=== PATIENT | female | born 1990 | race Hispanic/Latino ===

== ENCOUNTER 2019-10-17 22:41 | Observation (INO) | payer BC, SELFPAY ==
--- NOTE | ~2019-10-17 | XR_ITS ---
EXAMINATION: XR retrograde pyelo w/stent RT DATE: 10/18/2019 16:20 INDICATION: Right internal ureteral stent placement TECHNIQUE: Fluoroscopic images from a right internal ureteral stent placement are submitted for zeynep hernández 28 seconds of fluoroscopy time. 7 fluoroscopic images FINDINGS: There is a right double-J internal ureteral stent projecting in expected position, with proximal Bradford loop at the level of the renal pelvis and distal loop in the pelvis within the bladder lumen. IMPRESSION: 1. Right internal ureteral stent placement. Please refer to real-time procedural findings for panfilo wilson. Reviewed, dictated and finalized at location A. IMPRESSION: 1. Right internal ureteral stent placement. Please refer to real-time procedu ral findings for details.
--- NOTE | ~2019-10-17 | CT_ITS ---
EXAMINATION: CT abdomen pelvis wo con DATE: 10/18/2019 02:38 INDICATION: Right flank pain TECHNIQUE: Computed tomography (CT) of the abdomen and pelvis was performed without intravenous contr ast. The dose-length product (DLP) was 167.44 mGy-cm. Automated exposure control and iterative recons truction technique were employed. COMPARISON: None FINDINGS: The lung bases are clear. The heart size is normal. The liver, spleen, pancreas, gallbladde r, and adrenal glands are normal. There is a 3 mm stone in the right distal ureter which causes mild right hydroureteronephrosis. Nonobstructing stones of the right kidney measure up to 2 mm. There are nonobstructing stones of the left kidney which measure up to 3 mm. No pathologically enlarged abdomin al or pelvic lymph nodes are identified. There is no free intraperitoneal gas or evidence of bowel ob struction. The appendix is normal. IMPRESSION: 1. 3 mm stone of the right distal ureter causing mild right hydroureteronephrosis. 2. Bilateral nephrolithiasis. Reviewed, dictated and finalized at location B. IMPRESSION: 1. 3 mm stone of the right distal ureter causing mild right hydroureteronephros is. 2. Bilateral nephrolithiasis.
[2019-10-17 22:50] VITALS: BP 103/80; PULSE 104; RESP 17; TEMP 36.8; O2SAT 99
[2019-10-17 23:20] LABS: Basophils Percent Auto 0.4 % (0.2-1.2); Eosinophils Percent Auto 0.6 % (0-4.4); Hematocrit 40.4 % (37.0-47.0); Hemoglobin 14.1 g/dL (12.0-15.0); Immature Granulocyte Absolute 0.02 K/mm3 (0.00-0.031); Immature Granulocyte Percent A 0.3 % (0-0.5); Lymphocytes Absolute Auto 1.14 K/mm3 (0.9-3.2); Lymphocytes Percent Auto 15.9 % (18.3-44.2); Mean Corpuscular HGB Conc 34.9 g/dl (32-36); Mean Corpuscular Hemoglobin 31.5 pg (26-34); Mean Corpuscular Volume 90.2 fl (80-100); Mean Platelet Volume 11.2 fl (7.4-10.4); Monocytes Absolute Auto 0.5 K/mm3 (0.1-0.6); Monocytes Percent Auto 7.1 % (2.6-8.5); Neutrophils Absolute Auto 5.5 K/mm3 (1.3-6.7); Neutrophils Percent Auto 75.7 % (45.5-73.1); Platelet Count Result 239 k/mm3 (150-375); Red Blood Count 4.48 M/mm3 (4.2-5.4); Red Cell Distribution Width 11.9 % (11.5-14.5); White Blood Count 7.2 K/mm3 (4.5-10.0)
[2019-10-17 23:28] LABS: Anion Gap 16.1 mmol/L (7-16); Blood Urea Nitrogen 10 mg/dL (7-17); Calcium 9.4 mg/dL (8.4-10.2); Carbon Dioxide 20 mmol/L (22-30); Chloride 108 mmol/L (98-107); Estimated CRCL calculation 58 ml/min; Estimated Glomerular Filt Rate > 60; Glucose 107 mg/dL (65-105); Potassium 4.1 mmol/L (3.4-5.0); Sodium 140 mmol/L (137-145)
[2019-10-17 23:33] LABS: Add Urine Microscopic? YES; Appearance Urine Clear (Clear); Bilirubin Urine Negative (Negative); Blood Urine 1+ (Negative); Calcium Oxalate Crystals Urine Present /hpf; Color Urine Amber (Yellow); Glucose Urine UA Negative (Negative); Ketones Urine 1+ mg/dL (Negative); Leukocyte Esterase Ur Negative LEU/UL (Negative); Mucus Urine Few /lpf; Nitrate Urine Positive (Negative); Protein Urine 2+ mg/dL (Negative); Squamous Epithelial Cell Urine Many /hpf (Few)
[2019-10-17 23:47] LABS: Specific Grav Ur 1.031 (1.001-1.035)
[2019-10-18] VITALS (18 sets, daily range): BP systolic 109–133; BP diastolic 73–99; PULSE 66–108; RESP 8–20; TEMP 36.6–37.1; O2SAT 98–100; BMI 16.0
--- NOTE | 2019-10-18 02:01 | ED.FEMALEGU ---
HPI - Female Genitourinary General Chief complaint: Urogenital-Female Stated complaint: Right flank pain Time Seen by Provider: 10/18/19 01:44 Source: patient Mode of arrival: ambulatory Limitations: no limitations History of Present Illness HPI Narrative: Patient is a 29-year-old female with a history of epilepsy who presents for evaluation of dysuria, frequency, urgency as well as right-sided abdominal pain. Patient reports abdominal pain started earlier today, has become increasingly severe in nature, sharp in nature with pain in the right flank as well. Medication the patient is on for her epilepsy has a side effect of causing renal stones, so patient was initially concerned she had a kidney stone. Patient has denied any hematuria, but reports dysuria, frequency and urgency. She has been nauseated with earlier episodes of emesis. No fever. Related Data Allergies Allergy/AdvReac Type Severity Reaction Status Date / Time diphenhydramine AdvReac Weakness Verified 10/17/19 22:50 [From Benadryl] Review of Systems Review of Systems: Narrative: CONSTITUTIONAL: Denies fever CARDIOVASCULAR: Denies chest pain RESPIRATORY: Denies cough or dyspnea. GASTROINTESTINAL: Reports right-sided abdominal pain, right flank pain SKIN: Denies rash MUSCULOSKELETAL: Reports right flank pain NEUROLOGIC: Denies headache PMF Past Medical History Medical History (Updated 10/18/19 @ 03:24 by Alva Alfaro MD) Epilepsy Social History Social History (Updated 10/18/19 @ 02:03 by Alva Alfaro MD) Smoking status: Never smoker Alcohol intake: never Substance use: never Living arrangements: with family Gender identity (if verbalized by the patient): Female Exam Narrative: Exam Narrative: GENERAL: Awake, alert, conversant HEAD: Normocephalic, atraumatic. EYES: PERRLA and EOMI. ENT: Nares clear, no rhinorrhea or epistaxis. Mucous membranes moist. NECK: Supple. CHEST: No respiratory distress, breathing even and non labored HEART: Tachycardic rate, sinus rhythm ABDOMEN:Non distended, right lower quadrant tenderness, suprapubic tenderness, mild right flank tenderness EXTREMITIES: Normal range of motion. No edema. SKIN: Warm, dry, no rash. NEURO:No focal deficits. Alert and oriented x3 Course Vital Signs Vital signs: Vital Signs Temperature 36.8 C 07/26/20 22:50 Pulse Rate 104 H 10/17/19 22:50 Respiratory Rate 17 10/17/19 22:50 Blood Pressure 103/80 10/17/19 22:50 Pulse Oximetry 99 10/17/19 22:50 Temperature 36.8 C 10/17/19 22:50 Pulse Rate 88 10/18/19 03:18 Respiratory Rate 20 10/18/19 03:18 Blood Pressure 123/86 10/18/19 03:18 Pulse Oximetry 100 10/18/19 03:18 MDM - Female Genitourinary MDM Narrative Medical decision making narrative: Patient is a 29-year-old female that presented for evaluation of nausea, vomiting, and urinary symptoms and right-sided abdominal pain and flank pain. IV access obtained and labs are drawn. At the time of assessment, patient is afebrile, no severe tachycardia or hypotension. Patient with right abdominal tenderness and flank tenderness on exam. Patient without a leukocytosis. She does have a nitrate positive urinary tract infection. On imaging, she has bilateral renal stones and a 3 mm calculus at the right UVJ. Urology was consulted, patient will be kept n.p.o., placed on maintenance fluids with scheduled pain medication. Patient did receive a dose of Rocephin in the ER and remained hemodynamically stable without any fever, hypotension or tachycardia. No evidence of severe sepsis or septic shock. Patient admitted to Dr. Jaime. Differential Diagnosis Differential diagnosis: Likely urinary tract infection and other (nephrolithiasis) Lab Data Attestation: I reviewed the patient's lab results. Result diagrams: 10/17/19 22:57 10/17/19 22:57 Labs: Lab Results 10/17/19 10/17/19 10/17/19 Range/Units 22:57 22:5
[2019-10-18] MEDS: MORPHINE SULFATE 4 MG/ML INJ IV PUSH (02:14)
[2019-10-18] MEDS: ONDANSETRON INJ 4 MG/2 ML VIAL IV PUSH ×2 (02:14→13:00)
[2019-10-18] MEDS: SODIUM CHLORIDE 0.9% IV 1,000 ML 999 ML IV CONT (02:16)
[2019-10-18] MEDS: SODIUM CHLORIDE 0.9% IV 500 ML 999 ML IV CONT (02:18)
[2019-10-18] MEDS: KETOROLAC 15 MG/ML VIAL (*BKC) IV PUSH ×2 (04:23→08:18)
--- NOTE | 2019-10-18 04:39 | ADMGEN ---
This patient, Afshan Goff, was admitted to [facility] Room 301-01. Patient/family oriented to hospital policies and general routines including ID bracelet, bed and alarms, visiting hours, pain management, procedures, bathroom and other care routines, personal items, smoking policy, room service/diet, and visiting hours. Valuables list has been completed. Information on how to activate the Rapid Response Team has been discussed. Patient/Family are encouraged to report perceived risks to care and to ask questions if they do not understand what they are told or what they should do.
[2019-10-18] MEDS: SODIUM CHLORIDE 0.9% IV 1,000 ML 125 ML IV CONT ×2 (05:12→12:58)
--- NOTE | 2019-10-18 07:38 | PM.IMHP ---
H&P: HPI History of Present Illness Chief complaint: UTI, UVJ stone Narrative: Afshan Goff is a 29 year old female with no previous stone history. She had acute onset of right-sided flank pain yesterday afternoon. This prompted a visit to the emergency room. She was diagnosed with a 3 mm right distal ureteral stone. She had hydronephrosis proximal to the stone. She has bilateral small renal stones as well. She has a history of epilepsy the on seizure medicine. She took a AZO at home as well as Tylenol. This did not resolve the pain. she forth nausea without vomiting. She denies any fevers, chills, dysuria, blood in the urine, she denies any symptoms of urinary tract infection. Her urinalysis is nitrate positive. This is likely due to AZO staining the dipstick. Her urinalysis otherwise contaminated. She was given a dose of IV antibiotics in the emergency room. Review of Systems Review of Systems: All systems reviewed & are unremarkable except as noted in HPI and below PMFSH Past Medical History Medical History (Updated 10/18/19 @ 07:42 by Hank Jaime MD) Epilepsy Family History Family History (Updated 10/18/19 @ 04:51 by Silvino Moody RN) Other Unknown family medical history Social History Social History (Updated 10/18/19 @ 02:03 by Alva Alfaro MD) Smoking status: Never smoker Alcohol intake: never Substance use: never Substance use type: does not use Living arrangements: with family Gender identity (if verbalized by the patient): Female Sexual Orientation (if Verbalized by the Patient): Straight or Heterosexual Spiritual care concerns: No Meds Home Medications and Allergies Home Medications Medication Instructions Recorded Confirmed Type levetiracetam 2,000 mg PO BID 10/18/19 10/18/19 History norgestimate-ethinyl estradiol 1 tablet PO DAILY 10/18/19 10/18/19 History [Tri Femynor] nortriptyline 40 mg PO HS 10/18/19 10/18/19 History zonisamide 200 mg PO BID 10/18/19 10/18/19 History Allergies Allergy/AdvReac Type Severity Reaction Status Date / Time diphenhydramine AdvReac Weakness Verified 10/17/19 22:50 [From Benadryl] Vital Signs Vital Signs - 24 hr 10/17/19 22:50 10/18/19 00:27 10/18/19 01:06 Temperature 98.3 F Pulse Rate 104 H 95 96 Respiratory Rate 17 20 20 Blood Pressure 103/80 112/77 109/87 Pulse Oximetry 99 100 100 10/18/19 01:34 10/18/19 02:21 10/18/19 03:18 Temperature Pulse Rate 90 95 88 Respiratory Rate 20 20 20 Blood Pressure 122/74 133/99 H 123/86 Pulse Oximetry 100 100 100 10/18/19 04:15 10/18/19 04:23 10/18/19 06:00 Temperature 98.1 F 98.7 F Pulse Rate 93 108 H 97 Respiratory Rate 20 20 20 Blood Pressure 117/82 129/96 H 122/73 Pulse Oximetry 100 98 100 Exam Const: General: uncomfortable HENMT: General nose exam: Normal nares present Mouth: Yes moist mucous membranes Eyes: General: appearance normal, both eyes and all related structures EOM: EOMs intact bilaterally Neck: Neck: supple Lymphatic: lymphadenopathy not noted Resp: Effort & Inspection: normal respiratory effort Cardio: Rate: regular rate GI: GI Palp: Yes Soft to palpation, Yes Tenderness to palpation present (GI) ( in the right lower quadrant) and No Guarding due to palpation present (GI) Skin: General skin exam: normal color and no rashes or lesions noted Neuro: Speech: normal speech Extrem: General: normal to inspection Psych: Mental Status: mental status grossly normal H&P: Results Labs Labs: Short CBC 10/17/19 Range/Units 22:57 WBC 7.2 (4.5-10.0) K/mm3 Hgb 14.1 (12.0-15.0) g/dL Hct 40.4 (37.0-47.0) % Plt Count 239 (150-375) k/mm3 BMP 10/17/19 22:57 Sodium 140 Potassium 4.1 Chloride 108 H Carbon Dioxide 20 L BUN 10 Creatinine 0.90 Glucose 107 H Calcium 9.4 Urine 10/17/19 Range/Units 23:04 Urine Color Dorys (Yellow) Urine Appearance Clear (C
[2019-10-18] MEDS: levETIRAcetam 500 MG TABLET 2000 MG PO ×2 (09:24→18:13)
[2019-10-18] MEDS: MORPHINE SULFATE 4 MG/ML INJ 2 MG IV PUSH (13:00)
--- NOTE | 2019-10-18 13:05 | PCNSR ---
On 10/18/19, the student, Pedro Pablo Hunter, provided care and completed [place] documentation on this patient. I have reviewed the student's documentation and agree with the findings.
--- NOTE | 2019-10-18 14:05 | PC.NURSE ---
Patient to OR per bed with OR staff.
[2019-10-18] MEDS: LACTATED RINGERS 1,000 ML 30 ML IV CONT ×2 (14:37→16:20)
--- NOTE | 2019-10-18 15:04 | WPDANESEPPF ---
Anes - Initial Pre Proc Eval Procedure: Operation Date: 10/18/19 15:30 Proposed Procedures p CYSTOSCOPY,RIGHT URETEROSCOPY,STONE EXTRACTION - Hank Jaime MD Date/Time: 10/18/19 15:04 Surgeon: Hank Jaime MD Pre Op Diagnosis: UTI, UVJ stone Patient Data Age: 29 Gender: F Height: 1.6 m Weight: 40.9 kg Last Vital Signs Temp 36.8 C 10/18/19 14:34 Pulse 94 10/18/19 14:34 Resp 20 10/18/19 06:00 BP 121/73 10/18/19 14:34 Pulse Ox 100 10/18/19 14:34 Allergies Allergy/AdvReac Type Severity Reaction Status Date / Time diphenhydramine AdvReac Weakness Verified 10/17/19 22:50 [From Benadryl] Home Medications Medication Instructions Recorded Confirmed Type levetiracetam 2,000 mg PO BID 10/18/19 10/18/19 History norgestimate-ethinyl estradiol 1 tablet PO DAILY 10/18/19 10/18/19 History [Tri Femynor] nortriptyline 40 mg PO HS 10/18/19 10/18/19 History zonisamide 200 mg PO BID 10/18/19 10/18/19 History Laboratory Tests 10/17/19 10/17/19 10/17/19 22:57 22:57 23:04 WBC 7.2 K/mm3 K/mm3 (4.5-10.0) RBC 4.48 M/mm3 M/mm3 (4.2-5.4) Hgb 14.1 g/dL g/dL (12.0-15.0) Hct 40.4 % % (37.0-47.0) MCV 90.2 fl fl (80-100) MCH 31.5 pg pg (26-34) MCHC 34.9 g/dl g/dl (32-36) RDW 11.9 % % (11.5-14.5) Plt Count 239 k/mm3 k/mm3 (150-375) MPV 11.2 fl H fl (7.4-10.4) Immature Gran % (Auto) 0.3 % % (0-0.5) Neut % (Auto) 75.7 % H % (45.5-73.1) Lymph % (Auto) 15.9 % L % (18.3-44.2) [place] % (Auto) 7.1 % % (2.6-8.5) Eos % (Auto) 0.6 % % (0-4.4) Baso % (Auto) 0.4 % % (0.2-1.2) Lymph # (Auto) 1.14 K/mm3 K/mm3 (0.9-3.2) [place] # (Auto) 0.5 K/mm3 K/mm3 (0.1-0.6) Eos # (Auto) 0.0 K/mm3 K/mm3 (0-0.3) Baso # (Auto) 0.0 K/mm3 K/mm3 (0.0-0.1) Abs Immat Gran (auto) 0.02 K/mm3 K/mm3 (0.00-0.031) Absolute Neuts (auto) 5.5 K/mm3 K/mm3 (1.3-6.7) Absolute Nucleated RBC 0.0 K/mm3 K/mm3 (0.0-0.012) Nucleated RBC % 0.0 % % (0.0-0.2) Sodium 140 mmol/L mmol/L (137-145) Potassium 4.1 mmol/L mmol/L (3.4-5.0) Chloride 108 mmol/L H mmol/L (98-107) Carbon Dioxide 20 mmol/L L mmol/L (22-30) Anion Gap 16.1 mmol/L H mmol/L (7-16) BUN 10 mg/dL mg/dL (7-17) Creatinine 0.90 mg/dL mg/dL (0.7-1.0) Estim Creat Clear Calc 58 ml/min ml/min Estimated GFR > 60 (59 - ) Glucose 107 mg/dL H mg/dL (65-105) Calcium 9.4 mg/dL mg/dL (8.4-10.2) Urine Color Dorys (Yellow) Urine Appearance Clear (Clear) Urine pH 5.0 (5.0-9.0) Ur Specific [place] 1.031 (1.001-1.035) Urine Protein 2+ mg/dL H mg/dL (Negative) Urine Glucose (UA) Negative mg/dL mg/dL (Negative) Urine Ketones 1+ mg/dL H mg/dL (Negative) Ur Blood (Man) 1+ H (Negative) Urine Nitrate Positive H (Negative) Urine Bilirubin Negative (Negative) Urine Urobilinogen 4.0 mg/dL H mg/dL (<2.0) Leukocyte Esterase Rfl Negative SAMIR/UL SAMIR/UL (Negative) Urine RBC 3-5 /hpf H /hpf (0-2) Urine WBC 4-6 /hpf H /hpf Ur Squamous Epith Cells Many /hpf H /hpf (Few) Calcium Oxalate Crystal Present /hpf /hpf (None) Hyaline Casts 1-2 /lpf /lpf (None) Urine Mucus Few /lpf H /lpf Patient hx anesthesia problems: none Family hx anesthesia problems: none PMFSH Past Medical History Medical History (Updated 10/18/19 @ 14:12 by Sbeas Louis DO) Anxiety Epilepsy Migraine Family History Family History (Updated 10/18/19 @ 04:51 by Silvino Moody RN) Other Unknown family medi
[2019-10-18] MEDS: LIDOCAINE HCL 2% GEL UROJET 10 ML PKG MUCOUS MEM (16:00)
--- NOTE | 2019-10-18 16:22 | P.OP_ITS ---
Procedure Note - Detailed Date of procedure: 10/18/19 Pre-op diagnosis: UTI, UVJ stone right ureteral stone Post-op diagnosis: same Procedure performed: cystoscopy, right retrograde pyelogram, right ureteroscopy, stent placement Description of procedure: this is a patient with a 3 mm right distal ureteral stone. She has multiple small bilateral kidney stones. She presents today for ureteroscopy and stone extraction. She understands risks of bleeding, infection, damage to the urinary tract, inability to remove the stone. She agrees to proceed she was correctly identified and informed consent obtained. She is brought to the operating room. She was given general anesthesia. She was placed in dorsal thigh position. She was prepped and draped in a sterile fashion. Time-out performed. Cystoscopy revealed a normal-appearing bladder. A retrograde pyelogram was performed. I did not clearly see a filling defect of the stone but the stone was small. She had minimal hydronephrosis proximal to the stone. If I placed a guidewire to the kidney. I dilated the ureter with the 810 dilator. I performed ureteroscopy all the way up to the mid to proximal ureter. No stone was encountered. I re-examined the ureter once again. Again no stone was encountered. Because her ureter was small and did require some dilation I elected to leave a stent. I placed a 4.8 variable length stent in [facility]. The proximal coil in the upper pole kidney. Distal coil in the bladder. The bladder is drained. She was awakened and transferred to PACU in stable condition. Implants: 4.8 variable length stent Anesthesia: GLMA Surgeon: Hank Jaime MD Drains: No Packing: No Pathology: none sent Complications: No immediate complications Condition: stable Disposition: PACU
[2019-10-18] MEDS: PHENAZOPYRIDINE HCL 100 MG TABLET 200 MG PO (18:14)
[2019-10-18] MEDS: OXYBUTYNIN CHLORIDE 5 MG TABLET PO (18:14)
[2019-10-18] MEDS: ZONISAMIDE 100 MG CAPSULE 200 MG PO (18:15)
--- NOTE | 2019-10-22 07:31 | PM.DS ---
DS: Admitting Diagnosis Admitting Diagnosis Admitting Diagnosis: Calculus of ureter DS: Discharge Diagnosis Discharge Diagnosis (1) Calculus of right ureter: Code(s): N20.1 - Calculus of ureter Status: Acute Assessment and Plan: She was admitted through the ER with a distal ureteral filling through that a 3 afternoon showed right ureteroscopy. She was sent home the same day in stable condition. DS: Summary Time Spent with Patient Time attestation: Total time spent providing and/or coordinating discharge services: Exam Const: General: no acute distress Discharge Plan Discharge Attending physician on discharge: Hank Jaime Consulting providers: Hank Jaime ; Jb Baldwin ; Mars Anaya Discharging Clinician: Hank Jaime Anticipated Discharge Date/Time: 10/18/19 17:00 Patient Disposition: Home, Self-Care Activity: july shower Diet: as tolerated Discharge Instructions: follow up 7-10 days for stent removal. Office will call Patient Instructions: Antibiotic Form Stand Alone Forms: General Discharge Information Follow-up/Referrals: Hank Jaime MD [Physician] - (7-10 days) Discharge Medications: New hydrocodone-acetaminophen [[place]] 5-325 mg tablet 1 tablet PO Q4H PRN (Reason: pain) Qty: 30 RF: 0 phenazopyridine [Pyridium] 200 mg tablet 200 mg PO TID PRN (Reason: pain) Qty: 30 RF: 0 docusate sodium [Colace] 100 mg capsule 100 mg PO BID Qty: 60 RF: 0 oxybutynin chloride 5 mg tablet 5 mg PO TID PRN (Reason: Abdominal Discomfort) Qty: 60 RF: 0 sulfamethoxazole-trimethoprim [Bactrim DS] 800-160 mg tablet 1 tablet PO Q12H Qty: 10 RF: 0 Continued zonisamide 100 mg Capsule 200 mg PO BID RF: 0 norgestimate-ethinyl estradiol [Tri Femynor] 0.18/0.215/0.25 mg-35 mcg (28) Tablet 1 tablet PO DAILY RF: 0 nortriptyline 10 mg Capsule 40 mg PO HS RF: 0 levetiracetam 1,000 mg Tablet 2,000 mg PO BID RF: 0 Date of admission: 10/18/19 03:24 Primary Care Provider: PHYSICIAN,DYE AUTOMATION OPERATOR Admitting Provider: Hank Jaime Discharge Date/Time: 10/18/19 18:38 Attending physician on admission: Hank Jaime Condition: Stable
== END 2019-10-18 18:38 | disposition home or self-care (01) ==
LOC: ANHED 10-18 03:24 → ANH3MEDSUR 10-18 04:04
PROVIDERS: Admitting Provider Urology; Emergency Provider Emergency Medicine; Visit Provider Urology
PROC: (CPT 52352; principal; 2019-10-18 15:30)
DX: N13.2 Hydronephrosis with renal and ureteral calculous obstruction (principal); R82.90 Unspecified abnormal findings in urine
CPT/HCPCS: 52344; 52332; 36415; 74176; 74420; 80048; 81001; 81025; 85025; 96361; 96365; 96375; 96376; 99285; A9270; C1769; C2617; G0378; J0131; J0696; J1100; J1885; J2250; J2270; J2405; J2704; J3010; J7030; J7040; J7120; Q9966

== ENCOUNTER 2021-07-20 12:25 | Outpatient (CLI) | payer BC, SELFPAY ==
--- NOTE | ~2021-07-20 | US_ITS ---
EXAMINATION: US pelvic complete w TV DATE: 07/20/2021 16:05 INDICATION: Underweight and irregular heavy menses TECHNIQUE: Multiple transabdominal and endovaginal sonographic images of the pelvis were obtained. COMPARISON: None. FINDINGS: The uterus measures 6.8 x 4.5 x 3.5 cm. The endometrial complex measures 6 mm in thickness. The righ t ovary measures 2.7 x 1.7 x 1.2 cm. The left ovary measures 2.2 x 1.6 x 1.2 cm. 1.2 cm anechoic left ovarian cyst. There is normal vascular flow in the ovaries. Trace amount of likely physiologic free fluid in the cul-de-sac. Bladder appears normal with calculated volume of 797 mL despite patient atte mpting to void 3 times. Rotation of the box maker, the patient did not feel an urge to void. IMPRESSION: 1. Normal uterus. 2. Large amount of residual urine within the normal-appearing bladder despite reported 3 attempts at voiding which is of indeterminate etiology or significance. Reviewed, dictated and finalized at location A. IMPRESSION: 1. Normal uterus. 2. Large amount of residual urine within the normal-appearing bladder despite r eported 3 attempts at voiding which is of indeterminate etiology or significanc e.
== END 2021-07-20 12:26 | disposition home or self-care (01) ==
PROVIDERS: PCP Family Medicine; Visit Provider Obstetrics & Gynecology
DX: R63.6 Underweight (principal); N92.0 Excessive and frequent menstruation with regular cycle
CPT/HCPCS: 76830; 76856

== ENCOUNTER 2023-06-24 12:13 | Outpatient (CLI) | payer OTHER, SELFPAY ==
--- NOTE | ~2023-06-24 | XR_ITS ---
XR lumbar spine min 4V DATE: 06/24/2023 13:15 INDICATION: Heavy menses. Underweight. TECHNIQUE: AP, lateral, bilateral oblique views, coned lateral lumbosacral view COMPARISON: None FINDINGS: Normal alignment of the lumbar spine. No fracture or bone destruction, spondylolysis or spo ndylolisthesis. The lumbar pedicles are intact. Lumbar and lumbosacral interspaces are well preserved . IUD is noted. As a prominent amount of fecal material in the colon. IMPRESSION: Negative lumbar spine Reviewed, dictated and finalized at location B. IMPRESSION: Negative lumbar spine
== END 2023-06-24 12:14 ==
PROVIDERS: PCP Nurse Practitioner Family; Visit Provider Nurse Practitioner Family
DX: M54.50 Low back pain, unspecified (principal)
CPT/HCPCS: 72110

== ENCOUNTER 2024-02-18 12:15 | Outpatient (CLI) | payer BC, SELFPAY ==
--- NOTE | ~2024-02-18 | CT_ITS ---
EXAMINATION: CT abdomen pelvis wo/w con DATE: 02/18/2024 12:58 INDICATION: Gross hematuria. TECHNIQUE: Computed tomography (CT) of the abdomen and pelvis was performed without and with intraven ous contrast using a total of 130 mL Omnipaque-350 intravenous contrast with a double-bolus technique for simultaneous opacification of the renal parenchyma and renal collecting system. Automated exposu re control and iterative reconstruction technique were employed. The dose-length product was 1067.37 mGy-cm. COMPARISON: CT abdomen and pelvis 10/18/2019 FINDINGS: The visualized portions of the lung bases demonstrate mild atelectasis. No pleural effusion. The hear t size is normal. No pericardial effusion. The liver, gallbladder, spleen, pancreas, adrenal glands, and left kidney are normal. There is a 2 mm stone in right kidney. There is mild right hydronephrosis and hydroureter. There is a 4 mm stone in distal right ureter. The ureters are well opacified. The b ladder is normal. There is an intrauterine device in expected position. There are no dilated loops of bowel. The appendix is normal. There are no pathologically enlarged lymph nodes. There is no free in traperitoneal fluid. The bones are unremarkable. IMPRESSION: 1. 4 mm stone in distal right ureter with mild right hydronephrosis and hydroureter. 2. 2 mm nonobstructing right kidney stone. Reviewed, dictated and finalized at location A. FREQUENCY MILL OPERATOR IMPRESSION: 1. 4 mm stone in distal right ureter with mild right hydronephrosis and hydrour eter. 2. 2 mm nonobstructing right kidney stone.
--- NOTE | ~2024-02-18 | XR_ITS ---
XR abdomen/kub 1V Ordering provider: Camelia Dunbar APRN History: . R31.0Gross hematuria, right low back/pelvic pain, h/o stone . Comparison: None. FINDINGS: BOWEL: Nonobstructive bowel gas pattern. ORGANOMEGALY: None. SIGNIFICANT PATHOLOGIC CALCIFICATIONS: None. OTHER: IUD is seen. No free air is seen under the diaphragm. IMPRESSION: NO ACUTE ABDOMINAL FINDINGS. Reviewed, dictated and finalized at location A. ORTHOPEDIC
== END 2024-02-18 12:16 | disposition home or self-care (01) ==
LOC: ANHIMG 12:24
PROVIDERS: PCP Family Medicine; Visit Provider Nurse Practitioner Adult Health
DX: R31.0 Gross hematuria (principal); M54.50 Low back pain, unspecified; R10.31 Right lower quadrant pain
CPT/HCPCS: 74018; 74178; Q9967

== ENCOUNTER 2024-03-09 10:20 | Emergency (ER) | payer BC, SELFPAY ==
--- NOTE | ~2024-03-09 | CT_ITS ---
EXAMINATION: CT abdomen pelvis w con DATE: 03/09/2024 12:56 INDICATION: Generalized abdominal pain TECHNIQUE: Computed tomography (CT) of the abdomen and pelvis was performed with 100 mL Omnipaque-350 intravenous contrast. Automated exposure control and iterative reconstruction technique were employe d. The dose-length product was 340.00 mGy-cm. COMPARISON: 02/18/2024 FINDINGS: Mild dependent atelectasis in the lower lobes. Heart size is normal. No pericardial or pleural effusi on. Liver, gallbladder, spleen, pancreas and bilateral adrenal glands are normal. Again seen are a co uple 2 mm stones at the lower pole of the right kidney and a couple 1 mm stones at the lower pole of the left kidney. Minimal bilateral hydronephrosis without evident obstructing ureteral stones. Bladde r and bilateral adnexa are normal. T-shaped IUD in expected position within the anteverted uterus. Lance wels including the appendix are normal. No free intraperitoneal gas or fluid. No pathologically enlar ged abdominal or pelvic lymphadenopathy. Minimal lumbar lower thoracic spondylosis. IMPRESSION: 1. Very small bilateral renal stones with mild bilateral hydronephrosis but no evident obstructing ur eteral stones. 2. IUD in expected position. Reviewed, dictated and finalized at location A. [facility] IMPRESSION: 1. Very small bilateral renal stones with mild bilateral hydronephrosis but no evident obstructing ureteral stones. 2. IUD in expected position.
[2024-03-09 10:28] VITALS: BP 146/100; PULSE 114; RESP 18; TEMP 36.5; O2SAT 97
[2024-03-09 11:22] LABS: Basophils Percent Auto 0.8 % (0.2-1.2); Eosinophils Absolute Auto 0.2 K/mm3 (0-0.3); Eosinophils Percent Auto 4.5 % (0-4.4); Hematocrit 41.6 % (37.0-47.0); Hemoglobin 14.5 g/dL (12.0-15.0); Immature Granulocyte Absolute 0.03 K/mm3 (0.00-0.031); Immature Granulocyte Percent A 0.6 % (0-0.5); Lymphocytes Absolute Auto 1.87 K/mm3 (0.9-3.2); Lymphocytes Percent Auto 38.1 % (18.3-44.2); Mean Corpuscular HGB Conc 34.9 g/dl (32-36); Mean Corpuscular Hemoglobin 33.1 pg (26-34); Mean Platelet Volume 9.6 fl (7.4-10.4); Monocytes Absolute Auto 0.5 K/mm3 (0.1-0.6); Monocytes Percent Auto 10.8 % (2.6-8.5); Neutrophils Absolute Auto 2.2 K/mm3 (1.3-6.7); Neutrophils Percent Auto 45.2 % (45.5-73.1); Platelet Count Result 293 k/mm3 (150-375); Red Blood Count 4.38 M/mm3 (4.2-5.4); Red Cell Distribution Width 11.9 % (11.5-14.5); White Blood Count 4.9 K/mm3 (4.5-10.0)
[2024-03-09 11:33] LABS: Alanine Aminotransferase 20 U/L (6-35); Albumin Level 4.7 g/dL (3.5-5.1); Alkaline Phosphatase 67 U/L (38-126); Anion Gap 5 mmol/L (4-12); Aspartate Amino Transferase 23 U/L (14-36); Bilirubin,Total 0.5 mg/dL (0.2-1.3); Blood Urea Nitrogen 8 mg/dL (7-17); Calcium 9.3 mg/dL (8.4-10.2); Carbon Dioxide 30 mmol/L (22-30); Chloride 103 mmol/L (98-107); Estimated CRCL calculation 82 ml/min; Estimated Glomerular Filt Rate > 60; Glucose 91 mg/dL (65-110); Lipase 72 U/L (23-300); Sodium 138 mmol/L (137-145)
--- NOTE | 2024-03-09 11:55 | ED_ITS ---
HPI - Abdominal Pain General Chief Complaint: Abdominal Pain Stated Complaint: left flank pain Time Seen by Provider: 03/09/24 10:55 History of Present Illness HPI narrative: Patient is a 33-year-old female who presents to the ER with generalized abdominal pain specifically in her left lower quadrant and bilateral lower back pain. She reports right before she was diagnosed as having a 4 mm kidney stone and a 2 mm kidney stone. Patient was told to follow-up with urology but she has been unable to do this yet. She reports her pain got better but then last Friday or she started experiencing significant pain again. Patient reports her last bowel was 2 days ago and it was normal for her. She denies any recent fevers, chest pain, shortness of breath, urinary symptoms. Related Data Home Medications ?Medication ?Instructions ?Recorded ?Confirmed ?Last Taken ?Type nortriptyline 10 mg capsule 40 mg PO HS 10/18/19 03/09/24 10/15/19 History clobazam 20 mg tablet 20 mg PO BID 12/22/20 03/09/24 Unknown History lamotrigine 25 mg tablet (Lamictal) 50 mg PO DAILY 12/22/20 03/09/24 Unknown History clonazepam 0.5 mg disintegrating 0.5 mg PO DAILY PRN 10/14/22 03/09/24 Unknown History tablet levonorgestrel 14 mcg/24 hr (up to 1 device intrauterine ONCE 10/14/22 03/09/24 Unknown History 3 yrs) 13.5 mg intrauterine device (Precious) divalproex 500 mg tablet,extended mg PO DAILY 06/23/23 03/09/24 Unknown History release 24 hr levetiracetam 1,000 mg tablet 2,000 mg PO BID 10/17/23 03/09/24 Unknown History Allergies Allergy/AdvReac Type Severity Reaction Status Date / Time topiramate (From Topamax) AdvReac Severe Seizure Verified 03/09/24 08:39 ondansetron AdvReac Intermediate Headache Verified 03/09/24 08:39 diphenhydramine (From AdvReac Weakness Verified 03/09/24 08:39 Benadryl) Review of Systems 2 Review of Systems: All systems reviewed & are unremarkable except as noted in HPI and below PMFSH Past Medical History Medical History Right distal ureteral calculus RLQ abdominal pain Gross hematuria BMI 25.0-25.9,adult Right knee pain Flu vaccine need Body mass index (BMI) less than 20 Body mass index (BMI) less than 16.5 Anxiety Migraine Abnormal urinalysis Renal stone Calculus of right ureter Urinary tract infection Epilepsy Surgical History Surgical History H/O foot surgery Family History Family History Other Unknown family medical history Social History Social History Smoking status: Never smoker Second hand tobacco smoke exposure: No Alcohol intake: current Substance use: never Substance use type: does not use Living arrangements: with family Occupation/Education: occupation 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 HEAD: Normocephalic, atraumatic. NECK: Supple. No adenopathy, no masses. RESPIRATORY: Airway patent, respirations nonlabored. Clear to auscultation bilaterally, no rales, rhonchi, wheezing. CARDIOVASCULAR: Regular rate and rhythm without murmurs, rubs, or gallops. Peripheral pulses 2+ and equal bilaterally. +CVA ABDOMINAL: Soft, nontender, nondistended, no hepatosplenomegaly. Normoactive BS. MUSCULOSKELETAL: Moves all extremities. Strength/ROM intact without gross deformities. SKIN: Warm, dry, normal color. No rashes. NEURO: A&O X3. Speech clear. Cranial nerves II-XII grossly intact. Steady gait. No ataxic movements. PSYCHIATRIC: Appropriate mood and affect. Normal interaction. Course Vital Signs Vital signs: Vital Signs Temperature 36.5 C 03/09/24 10:28 Pulse Rate 114 H 03/09/24 10:28 Respiratory Rate 18 03/09/24 10:28 Blood Pressure 146/100 H 03/09/24 10:28 Pulse Oximetry 97 03/09/24 10:28 Temperature 36.5 C 03/09/24 10:28 Pulse Rate 114 H 03/09/24 10:28 Respiratory Rate 18 03/09/24 10:28 Blood Pressure 146/100 H 03/09/24 10:28 Pulse Oximetry 97 03/09/24 10:28 MDM - Abdominal Pain MDM Narrative Medical decision making narrative: Patient is a 33-year-old female who presents to the ER with generalized abdominal pain specifically in her left lower quadrant and bilateral lower back pain. She reports right before she was diagnosed as having a 4 mm kidney stone and a 2 mm kidney stone. Patient was told to follow-up with urology but she has been unable to do this yet. She reports her pain got better but then last Friday or she started experiencing significant pain again. Patient reports her last bowel was 2 days ago and it was normal for her. She denies any recent fevers, chest pain, shortness of breath, urinary symptoms. Labs Ordered: CBC, CMP, beta HCG, COVID, UA, lipase Imaging Ordered: CT abdomen pelvis Results: CT abdomen pelvis scan indicates Mild dependent atelectasis in the lower lobes. Heart size is normal. No pericardial or pleural effusion. Liver, gallbladder, spleen, pancreas and bilateral adrenal glands are normal. Again seen are a couple 2 mm stones at the lower pole of the right kidney and a couple 1 mm stones at the lower pole of the left kidney. Minimal bilateral hydronephrosis without evident obstructing ureteral stones. Bladder and bilateral adnexa are normal. T-shaped IUD in expected position within the anteverted uterus. Bowels including the appendix are normal. No free intraperitoneal gas or fluid. No pathologically enlarged abdominal or pelvic lymphadenopathy. Minimal lumbar lower thoracic spondylosis. Diagnosis: lower abdominal pain, unknown cause Patient Education/Shared MDM: Results shared with patient. Patient requesting pain medication for home. HEALTH EDUCATION ASSISTANT explained that she could get a prescription for ibuprofen or Tylenol. She declined a prescription for Zofran. Patient advised to follow-up with her primary care provider and urologist as soon as possible. She and her boyfriend verbalized understanding and are in agreement with plan. All questions answered. Vital signs stable at time of discharge. Differential Diagnosis Differential diagnosis: Likely abdominal pain, calculus of kidney, constipation and gastroenteritis Lab Data Attestation: I reviewed the patient's lab results. 03/09/24 11:12 03/09/24 11:12 Labs: Lab Results 03/09/24 03/09/24 03/09/24 Range/Units 11:12 11:59 12:35 WBC 4.9 (4.5-10.0) K/mm3 RBC 4.38 (4.2-5.4) M/mm3 Hgb 14.5 (12.0-15.0) g/dL Hct 41.6 (37.0-47.0) % MCV 95.0 (80-100) fl MCH 33.1 (26-34) pg MCHC 34.9 (32-36) g/dl RDW 11.9 (11.5-14.5) % Plt Count 293 (150-375) k/mm3 MPV 9.6 (7.4-10.4) fl Immature Gran % (Auto) 0.6 H (0-0.5) % Neut % (Auto) 45.2 L (45.5-73.1) % Lymph % (Auto) 38.1 (18.3-44.2) % [place] % (Auto) 10.8 H (2.6-8.5) % Eos % (Auto) 4.5 H (0-4.4) % Baso % (Auto) 0.8 (0.2-1.2) % Lymph # (Auto) 1.87 (0.9-3.2) K/mm3 [place] # (Auto) 0.5 (0.1-0.6) K/mm3 Eos # (Auto) 0.2 (0-0.3) K/mm3 Baso # (Auto) 0.0 (0.0-0.1) K/mm3 Abs Immat Gran (auto) 0.03 (0.00-0.031) K/mm3 Absolute Neuts (auto) 2.2 (1.3-6.7) K/mm3 Absolute Nucleated RBC 0.000 (0.0-0.012) K/mm3 Nucleated RBC % 0.0 (0.0-0.2) % Sodium 138 (137-145) mmol/L Potassium 4.0 (3.4-5.0) mmol/L Chloride 103 (98-107) mmol/L Carbon Dioxide 30 (22-30) mmol/L Anion Gap 5 (4-12) mmol/L BUN 8 (7-17) mg/dL Creatinine 0.70 (0.7-1.0) mg/dL Estim Creat Clear Calc 82 ml/min Estimated GFR > 60 (59 - ) Glucose 91 (65-110) mg/dL Calcium 9.3 (8.4-10.2) mg/dL Total Bilirubin 0.5 (0.2-1.3) mg/dL AST 23 (14-36) U/L ALT 20 (6-35) U/L Alkaline Phosphatase 67 (38-126) U/L Total Protein 7.0 (6.3-8.2) g/dL Albumin 4.7 (3.5-5.1) g/dL Lipase 72 (23-300) U/L Beta HCG, Quant < 2.39 mIU/ML Urine Color Yellow (Yellow) Urine Appearance Clear (Clear) Urine pH 7.0 (5.0-9.0) Ur Specific Pimento 1.006 (1.001-1.035) Urine Protein Negative (Negative) mg/dL Urine Glucose (UA) Negative (Negative) mg/dL Urine Ketones Negative (Negative) mg/dL Ur Blood (Man) Negative (Negative) Urine Nitrate Negative (Negative) Urine Bilirubin Negative (Negative) Urine Urobilinogen 0.2 (<2.0) mg/dL Leukocyte Esterase Rfl Negative (Negative) SAMIR/UL POC Urine HCG, Qual (Negative) Influenza A (RT-PCR) Negative (Negative) Influenza B (RT-PCR) Negative (Negative) RSV (RT-PCR) Negative (Negative) SARS-CoV-2 RNA (RT-PCR) Negative (Negative) 03/09/24 Range/Units 12:42 WBC (4.5-10.0) K/mm3 RBC (4.2-5.4) M/mm3 Hgb (12.0-15.0) g/dL Hct (37.0-47.0) % MCV (80-100) fl MCH (26-34) pg MCHC (32-36) g/dl RDW (11.5-14.5) % Plt Count (150-375) k/mm3 MPV (7.4-10.4) fl Immature Gran % (Auto) (0-0.5) % Neut % (Auto) (45.5-73.1) % Lymph % (Auto) (18.3-44.2) % [place] % (Auto) (2.6-8.5) % Eos % (Auto) (0-4.4) % Baso % (Auto) (0.2-1.2) % Lymph # (Auto) (0.9-3.2) K/mm3 [place] # (Auto) (0.1-0.6) K/mm3 Eos # (Auto) (0-0.3) K/mm3 Baso # (Auto) (0.0-0.1) K/mm3 Abs Immat Gran (auto) (0.00-0.031) K/mm3 Absolute Neuts (auto) (1.3-6.7) K/mm3 Absolute Nucleated RBC (0.0-0.012) K/mm3 Nucleated RBC % (0.0-0.2) % Sodium (137-145) mmol/L Potassium (3.4-5.0) mmol/L Chloride (98-107) mmol/L Carbon Dioxide (22-30) mmol/L Anion Gap (4-12) mmol/L BUN (7-17) mg/dL Creatinine (0.7-1.0) mg/dL Estim Creat Clear Calc ml/min Estimated GFR (59 - ) Glucose (65-110) mg/dL Calcium (8.4-10.2) mg/dL Total Bilirubin (0.2-1.3) mg/dL AST (14-36) U/L ALT (6-35) U/L Alkaline Phosphatase (38-126) U/L Total Protein (6.3-8.2) g/dL Albumin (3.5-5.1) g/dL Lipase (23-300) U/L Beta HCG, Quant mIU/ML Urine Color (Yellow) Urine Appearance (Clear) Urine pH (5.0-9.0) Ur Specific Pimento (1.001-1.035) Urine Protein (Negative) mg/dL Urine Glucose (UA) (Negative) mg/dL Urine Ketones (Negative) mg/dL Ur Blood (Man) (Negative) Urine Nitrate (Negative) Urine Bilirubin (Negative) Urine Urobilinogen (<2.0) mg/dL Leukocyte Esterase Rfl (Negative) SAMIR/UL POC Urine HCG, Qual Negative (Negative) Influenza A (RT-PCR) (Negative) Influenza B (RT-PCR) (Negative) RSV (RT-PCR) (Negative) SARS-CoV-2 RNA (RT-PCR) (Negative) Imaging Data Attestation: I personally reviewed and interpreted this imaging study as follows: Radiologist's impression: ITS Impressions Abdomen/Pelvis CT 03/09/24 13:22 IMPRESSION: 1. Very small bilateral renal stones with mild bilateral hydronephrosis but no evident obstructing ureteral stones. 2. IUD in expected position. Discharge Plan Discharge Clinical Impression: Abdominal pain of unknown cause, Kidney stones, Bilateral renal colic Patient Disposition: Home, Self-Care Condition: Stable Instructions: Antibiotic Form, Abdominal Pain (ED) Additional Instructions: Please return to the ER with an worsening symptoms. Follow-up with primary care provider in the next 2-3 days. Take all medications as prescribed. Patient Language: Indonesian Prescriptions: No Action clobazam 20 mg tablet 20 mg PO BID lamotrigine [Lamictal] 25 mg tablet 50 mg PO DAILY clonazepam 0.5 mg tablet,disintegrating 0.5 mg PO DAILY PRN Precious 14 mcg/24 hrs (3 yrs) 13.5 mg intrauterine device 1 device intrauterine ONCE Rx Instructions: as a single dose divalproex 500 mg tablet extended release 24 hr PO DAILY ketoconazole 2 % shampoo 1 applic topical 3XW Qty: 120 0RF ketoconazole 2 % cream 1 applic topical BID Qty: 30 0RF famotidine [Pepcid] 20 mg tablet 20 mg PO DAILY Qty: 90 1RF hydroxyzine HCl 10 mg tablet 10 mg PO TID PRN (Reason: nausea and vomiting) Qty: 30 0RF diclofenac sodium 50 mg tablet,delayed release (DR/EC) 50 mg PO BID PRN (Reason: pain) Qty: 90 2RF hydrocodone-acetaminophen 5-325 mg tablet 1 tablet PO Q6H PRN (Reason: pain) Qty: 20 0RF ondansetron 4 mg tablet,disintegrating 4 mg PO Q8H PRN (Reason: nausea and vomiting) Qty: 20 0RF tamsulosin 0.4 mg capsule 0.4 mg PO QHS Qty: 14 0RF nortriptyline 10 mg Capsule 40 mg PO HS levetiracetam 1,000 mg tablet 2,000 mg PO BID Follow-up/Referrals: Prem May MD [Physician] - (urology) Duke Davis MD [Primary Care Provider] - Time of Disposition: 14:58
[2024-03-09] MEDS: SODIUM CHLORIDE 0.9% IV 1,000 ML 999 ML IV CONT (12:02)
[2024-03-09 12:13] LABS: Beta HCG Quantitative < 2.39 mIU/ML
[2024-03-09 12:39] LABS: Influenza A QL RT-PCR Negative (Negative); Influenza B QL RT-PCR Negative (Negative); RSV RNA, RT-PCR Negative (Negative); SARS-CoV-2 RNA PCR Negative (Negative)
[2024-03-09 12:41] LABS: Add Urine Microscopic? NO; Appearance Urine Clear (Clear); Bilirubin Urine Negative (Negative); Blood Urine Negative (Negative); Color Urine Yellow (Yellow); Glucose Urine UA Negative (Negative); Ketones Urine Negative (Negative); Leukocyte Esterase Ur Negative LEU/UL (Negative); Nitrate Urine Negative (Negative); Protein Urine Negative (Negative); Specific Grav Ur 1.006 (1.001-1.035); Urobilinogen Urine 0.2 mg/dL (<2.0)
[2024-03-09 12:44] LABS: BEDSIDEPREGUCG Negative (Negative)
[2024-03-09 13:45] VITALS: BP 138/84; PULSE 89; RESP 16; TEMP 36.7; O2SAT 99
== END 2024-03-09 15:24 | disposition home or self-care (01) ==
PROVIDERS: Emergency Provider Registered Nurse; PCP Family Medicine
DX: R10.32 Left lower quadrant pain (principal); N13.2 Hydronephrosis with renal and ureteral calculous obstruction; Z20.822 Contact with and (suspected) exposure to COVID-19; G40.909 Epilepsy, unspecified, not intractable, without status epilepticus; Z97.5 Presence of (intrauterine) contraceptive device; Z87.442 Personal history of urinary calculi; Z87.440 Personal history of urinary (tract) infections; Z79.899 Other long term (current) drug therapy
CPT/HCPCS: 36415; 74177; 80053; 81003; 81025; 83690; 84702; 85025; 87637; 96360; 99284; J7030; Q9967

== ENCOUNTER 2025-02-15 14:33 | Emergency (ER) | payer OTHER, SELFPAY ==
[2025-02-15 15:13] VITALS: BP 125/76; PULSE 130; RESP 20; TEMP 36.8; O2SAT 99
--- NOTE | 2025-02-15 15:16 | ECG_ITS ---
Test Date: 2025-02-15 15:21:45 Measurements Intervals [place] Rate: 129 P: 75 IL: 128 QRS: 93 QRSD: 76 T: 70 QT: 334 QTc: 491 Interpretive Statements SINUS TACHYCARDIA BORDERLINE RIGHT AXIS DEVIATION [QRS AXIS > 90] NONSPECIFIC T-WAVE ABNORMALITY ABNORMAL RHYTHM ECG No previous ECG available for comparison Electronically Signed On 02-15-2025 17:36:09 MAINFRAME DEVELOPER by Deshaun Messina M.D.
--- NOTE | 2025-02-15 16:17 | ED_ITS ---
HPI - General Adult General Chief complaint: Unspecified <Marina Tellez PA-C - Last Filed: 02/15/25 18:55> Stated complaint: SHAKING AFTER SUDAFED, STUTTERING <Marina Tellez PA-C - Last Filed: 02/15/25 18:55> Time Seen by Provider: 02/15/25 16:17 <Marina Tellez PA-C - Last Filed: 02/15/25 18:55> Focused HPI: This is a 34 year old female that presents to the ER for shakiness. Ongoing over the last couple of hours. Reports she took Sudafed D. Reports she feels like she is having adverse reaction to this medication. Reports she took this to try to get rid of her dizziness. Reports she has been having trouble with a sinus infection. GENERAL: Well-appearing, well-nourished, and in no acute distress. HEAD: Normocephalic, atraumatic. CHEST: Clear to auscultation. ?No respiratory distress. HEART: Regular rhythm, tachycardic NEURO: ?Alert and oriented x3. Patient screened in triage and initial orders placed.? ?Additional care and disposition to be based upon?diagnostic testing and treatment. <Marina Tellez PA-C - Last Filed: 02/15/25 18:55> History of Present Illness HPI narrative: Patient 34-year-old female presents emergency department with chief complaint of shakiness and dizziness. Patient reports she has had an upper respiratory infection reports that she took some Sudafed D this morning the patient states that since then she has felt very shaky and reports that her heart is beating faster patient denies chest pain denies shortness of breath reports no fever denies syncope reports that she does have history of seizures but has not had a seizure today <Anuj Ramos MD - Last Filed: 02/15/25 18:44> Related Data Home medications: Home Medications ?Medication ?Instructions ?Recorded ?Confirmed ?Last Taken ?Type nortriptyline 10 mg capsule 40 mg PO HS 10/18/1903/0910/15/19 History clobazam 20 mg tablet 20 mg PO BID 12/22/20 Unknown History lamotrigine 25 mg tablet (Lamictal) 50 mg PO DAILY 04/1303/09/24 Unknown History clonazepam 0.5 mg disintegrating 0.5 mg PO DAILY PRN 0 10/14/22 03/09/24 Unknown History tablet levonorgestrel 14 mcg/24 hr (up to 1 device intrauteri ne ONCE 10/14/22 03/09/24 Unknown History 3 yrs) 13.5 mg intrauterine device (Precious) divalproex 500 mg tablet,extended mg PO DAILY 06/23/23 03/09/24 Unknown History release 24 hr levetiracetam 1,000 mg tablet 2,000 mg PO BID 10/17/23 03/09/24 Unknown History <Marina Tellez PA-C - Last Filed: 02/15/25 18:55> Allergies/adverse reactions: Allergies Allergy/AdvReac Type Severity Reaction Status Date / Time topiramate (From Topamax) AdvReac Severe Seizure Verified 02/15/25 14:34 ondansetron AdvReac Intermediate Headache Verified 02/15/25 14:34 diphenhydramine (From AdvReac Weakness Verified 02/15/25 14:34 Benadryl) <Marina Tellez PA-C - Last Filed: 02/15/25 18:55> Review of Systems 2 Review of Systems: A 10 system review of systems was completed on the patient and is negative except for what is stated in the HPI. Nursing and ancillary documentation was reviewed. <Anuj Ramos MD - Last Filed: 02/15/25 18:44> [facility] Past Medical History Medical History: Medical History Right distal ureteral calculus RLQ abdominal pain Gross hematuria BMI 25.0-25.9,adult Right knee pain Flu vaccine need Body mass index (BMI) less than 20 Body mass index (BMI) less than 16.5 Anxiety Migraine Abnormal urinalysis Renal stone Calculus of right ureter Urinary tract infection Epilepsy <Marina Tellez PA-C - Last Filed: 02/15/25 18:55> Surgical History Surgical History: Surgical History H/O foot surgery <Marina Tellez PA-C - Last Filed: 02/15/25 18:55> Family History Family History: Family History Other Unknown family medical history <Marina Tellez PA-C - Last Filed: 02/15/25 18:55> Social History Social History: Social History Smoking status: Never smoker Second hand tobacco smoke exposure: No Alcohol intake: current Substance use: never Substance use type: does not use Living arrangements: with family Occupation/Education: occupation 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 HEAD: Normocephalic, atraumatic. EYES: PERRLA and EOMI. ENT: Nares clear, no rhinorrhea or epistaxis. Mucous membranes moist. NECK: Supple. CHEST: Clear to auscultation. No respiratory distress. HEART: Regular rate and rhythm. No murmur heard. Normal peripheral pulses. ABDOMEN: Soft, nontender, nondistended, normal active bowel sounds. EXTREMITIES: Normal range of motion. No edema. SKIN: Warm, dry, no rash. NEURO: No focal deficits. Alert and oriented x3. PSYCH: Normal mood and affect. <Anuj Ramos MD - Last Filed: 02/15/25 18:44> Course Vital Signs Vital signs: Vital Signs Temperature 98.3 F 02/15/25 15:13 Pulse Rate 130 H 02/15/25 15:13 Respiratory Rate 20 02/15/25 15:13 Blood Pressure 125/76 02/15/25 15:13 Pulse Oximetry 99 02/15/25 15:13 Oxygen Delivery Room Air 02/15/25 15:13 Temperature 98.3 F 02/15/25 15:13 Pulse Rate 130 H 02/15/25 15:13 Respiratory Rate 20 02/15/25 15:13 Blood Pressure 125/76 02/15/25 15:13 Pulse Oximetry 99 02/15/25 15:13 Oxygen Delivery Room Air 02/15/25 15:13 <Marina Tellez PA-C - Last Filed: 02/15/25 18:55> Vital Signs Temperature 98.3 F 02/15/25 15:13 Pulse Rate 130 H 02/15/25 15:13 Respiratory Rate 20 02/15/25 15:13 Blood Pressure 125/76 02/15/25 15:13 Pulse Oximetry 99 02/15/25 15:13 Oxygen Delivery Room Air 02/15/25 15:13 Temperature 98.3 F 02/15/25 15:13 Pulse Rate 130 H 02/15/25 15:13 Respiratory Rate 20 02/15/25 15:13 Blood Pressure 125/76 02/15/25 15:13 Pulse Oximetry 99 02/15/25 15:13 Oxygen Delivery Room Air 02/15/25 15:13 <Anuj Ramos MD - Last Filed: 02/15/25 18:44> Medical Decision Making MDM Narrative Medical decision making narrative: Differential diagnosis includes medication reaction, upper respiratory infection, electrolyte abnormality EKG showed sinus tachycardia Laboratory studies were otherwise negative Patient was instructed to avoid taking Sudafed <Anuj Ramos MD - Last Filed: 02/15/25 18:44> Vital Signs Vital Signs: Vital Signs Temperature 98.3 F 02/15/25 15:13 Pulse Rate 130 H 02/15/25 15:13 Respiratory Rate 20 02/15/25 15:13 Blood Pressure 125/76 02/15/25 15:13 Pulse Oximetry 99 02/15/25 15:13 Oxygen Delivery Room Air 02/15/25 15:13 Temperature 98.3 F 02/15/25 15:13 Pulse Rate 130 H 02/15/25 15:13 Respiratory Rate 20 02/15/25 15:13 Blood Pressure 125/76 02/15/25 15:13 Pulse Oximetry 99 02/15/25 15:13 Oxygen Delivery Room Air 02/15/25 15:13 <Marina Tellez PA-C - Last Filed: 02/15/25 18:55> Vital Signs Temperature 98.3 F 02/15/25 15:13 Pulse Rate 130 H 02/15/25 15:13 Respiratory Rate 20 02/15/25 15:13 Blood Pressure 125/76 02/15/25 15:13 Pulse Oximetry 99 02/15/25 15:13 Oxygen Delivery Room Air 02/15/25 15:13 Temperature 98.3 F 02/15/25 15:13 Pulse Rate 130 H 02/15/25 15:13 Respiratory Rate 20 02/15/25 15:13 Blood Pressure 125/76 02/15/25 15:13 Pulse Oximetry 99 02/15/25 15:13 Oxygen Delivery Room Air 02/15/25 15:13 <Anuj Ramos MD - Last Filed: 02/15/25 18:44> Lab Data Result diagrams: 02/15/25 16:36 02/15/25 16:36 <Marina Tellez PA-C - Last Filed: 02/15/25 18:55> Labs: Lab Results 02/15/25 02/15/25 02/15/25 Range/Units 16:36 18:06 18:09 WBC 8.1 (4.5-10.0) K/mm3 RBC 4.30 (4.2-5.4) M/mm3 Hgb 14.5 (12.0-15.0) g/dL Hct 41.7 (37.0-47.0) % MCV 97.0 (80-100) fl MCH 33.7 (26-34) pg MCHC 34.8 (32-36) g/dl RDW 11.9 (11.5-14.5) % Plt Count 331 (150-375) k/mm3 MPV 9.0 (7.4-10.4) fl Immature Gran % (Auto) 1.1 H (0-0.5) % Neut % (Auto) 67.0 (45.5-73.1) % Lymph % (Auto) 19.3 (18.3-44.2) % [place] % (Auto) 10.9 H (2.6-8.5) % Eos % (Auto) 1.1 (0-4.4) % Baso % (Auto) 0.6 (0.2-1.2) % Lymph # (Auto) 1.56 (0.9-3.2) K/mm3 [place] # (Auto) 0.9 H (0.1-0.6) K/mm3 Eos # (Auto) 0.1 (0-0.3) K/mm3 Baso # (Auto) 0.1 (0.0-0.1) K/mm3 Abs Immat Gran (auto) 0.09 H (0.00-0.031) K/mm3 Absolute Neuts (auto) 5.4 (1.3-6.7) K/mm3 Absolute Nucleated RBC 0.000 (0.0-0.012) K/mm3 Nucleated RBC % 0.0 (0.0-0.2) % Sodium 135 L (137-145) mmol/L Potassium 4.8 (3.4-5.0) mmol/L Chloride 101 (98-107) mmol/L Carbon Dioxide 27 (22-30) mmol/L Anion Gap 7 (4-12) mmol/L BUN 10 (7-17) mg/dL Creatinine 0.63 L (0.7-1.0) mg/dL Estim Creat Clear Calc 110 ml/min Estimated GFR > 60 (59 - ) Glucose 105 (65-110) mg/dL Calcium 9.5 (8.4-10.2) mg/dL Total Bilirubin 0.3 (0.2-1.3) mg/dL AST 30 (14-36) U/L ALT 16 (6-35) U/L Alkaline Phosphatase 69 (38-126) U/L Total Creatine Kinase 43 (30-135) U/L Total Protein 7.8 (6.3-8.2) g/dL Albumin 4.6 (3.5-5.1) g/dL Urine Color Yellow (Yellow) Urine Appearance Clear (Clear) Urine pH 7.5 (5.0-9.0) Ur Specific [place] 1.007 (1.001-1.035) Urine Protein Negative (Negative) mg/dL Urine Glucose (UA) Negative (Negative) mg/dL Urine Ketones Trace H (Negative) mg/dL Ur Blood (Man) Negative (Negative) Urine Nitrate Negative (Negative) Urine Bilirubin Negative (Negative) Urine Urobilinogen 0.2 (<2.0) mg/dL Leukocyte Esterase Rfl Trace H (Negative) SAMIR/UL Urine RBC 0-2 (0-2) /hpf Urine WBC 0-5 (0-3) /hpf Ur Squamous Epith Cells None seen (Few) /hpf Urine Bacteria None seen /hpf Urine Casts 0-2 POC Urine HCG, Qual Negative (Negative) Influenza A (RT-PCR) Negative (Negative) Influenza B (RT-PCR) Negative (Negative) RSV (RT-PCR) Negative (Negative) SARS-CoV-2 RNA (RT-PCR) Negative (Negative) <Marina Tellez PA-C - Last Filed: 02/15/25 18:55> Lab Results 02/15/25 02/15/25 02/15/25 Range/Units 16:36 18:06 18:09 WBC 8.1 (4.5-10.0) K/mm3 RBC 4.30 (4.2-5.4) M/mm3 Hgb 14.5 (12.0-15.0) g/dL Hct 41.7 (37.0-47.0) % MCV 97.0 (80-100) fl MCH 33.7 (26-34) pg MCHC 34.8 (32-36) g/dl RDW 11.9 (11.5-14.5) % Plt Count 331 (150-375) k/mm3 MPV 9.0 (7.4-10.4) fl Immature Gran % (Auto) 1.1 H (0-0.5) % Neut % (Auto) 67.0 (45.5-73.1) % Lymph % (Auto) 19.3 (18.3-44.2) % [place] % (Auto) 10.9 H (2.6-8.5) % Eos % (Auto) 1.1 (0-4.4) % Baso % (Auto) 0.6 (0.2-1.2) % Lymph # (Auto) 1.56 (0.9-3.2) K/mm3 [place] # (Auto) 0.9 H (0.1-0.6) K/mm3 Eos # (Auto) 0.1 (0-0.3) K/mm3 Baso # (Auto) 0.1 (0.0-0.1) K/mm3 Abs Immat Gran (auto) 0.09 H (0.00-0.031) K/mm3 Absolute Neuts (auto) 5.4 (1.3-6.7) K/mm3 Absolute Nucleated RBC 0.000 (0.0-0.012) K/mm3 Nucleated RBC % 0.0 (0.0-0.2) % Sodium 135 L (137-145) mmol/L Potassium 4.8 (3.4-5.0) mmol/L Chloride 101 (98-107) mmol/L Carbon Dioxide 27 (22-30) mmol/L Anion Gap 7 (4-12) mmol/L BUN 10 (7-17) mg/dL Creatinine 0.63 L (0.7-1.0) mg/dL Estim Creat Clear Calc 110 ml/min Estimated GFR > 60 (59 - ) Glucose 105 (65-110) mg/dL Calcium 9.5 (8.4-10.2) mg/dL Total Bilirubin 0.3 (0.2-1.3) mg/dL AST 30 (14-36) U/L ALT 16 (6-35) U/L Alkaline Phosphatase 69 (38-126) U/L Total Creatine Kinase 43 (30-135) U/L Total Protein 7.8 (6.3-8.2) g/dL Albumin 4.6 (3.5-5.1) g/dL Urine Color Yellow (Yellow) Urine Appearance Clear (Clear) Urine pH 7.5 (5.0-9.0) Ur Specific [place] 1.007 (1.001-1.035) Urine Protein Negative (Negative) mg/dL Urine Glucose (UA) Negative (Negative) mg/dL Urine Ketones Trace H (Negative) mg/dL Ur Blood (Man) Negative (Negative) Urine Nitrate Negative (Negative) Urine Bilirubin Negative (Negative) Urine Urobilinogen 0.2 (<2.0) mg/dL Leukocyte Esterase Rfl Trace H (Negative) SAMIR/UL Urine RBC 0-2 (0-2) /hpf Urine WBC 0-5 (0-3) /hpf Ur Squamous Epith Cells None seen (Few) /hpf Urine Bacteria None seen /hpf Urine Casts 0-2 POC Urine HCG, Qual Negative (Negative) Influenza A (RT-PCR) Negative (Negative) Influenza B (RT-PCR) Negative (Negative) RSV (RT-PCR) Negative (Negative) SARS-CoV-2 RNA (RT-PCR) Negative (Negative) <Anuj Ramos MD - Last Filed: 02/15/25 18:44> Discharge Plan Discharge Clinical Impression: Acute upper respiratory infection, Heart palpitations <Marina Tellez PA-C - Last Filed: 02/15/25 18:55> Patient Disposition: Home <Marina Tellez PA-C - Last Filed: 02/15/25 18:55> Condition: Stable <Marina Tellez PA-C - Last Filed: 02/15/25 18:55> Instructions: Antibiotic Form, Heart Palpitations (ED), Upper Respiratory Infection (ED) <Marina Tellez PA-C - Last Filed: 02/15/25 18:55> Patient Language: Bulgarian <Marina Tellez PA-C - Last Filed: 02/15/25 18:55> Prescriptions: No Action clobazam 20 mg tablet 20 mg PO BID lamotrigine [Lamictal] 25 mg tablet 50 mg PO DAILY clonazepam 0.5 mg tablet,disintegrating 0.5 mg PO DAILY PRN Precious 14 mcg/24 hrs (3 yrs) 13.5 mg intrauterine device 1 device intrauterine ONCE Rx Instructions: as a single dose divalproex 500 mg tablet extended release 24 hr PO DAILY ketoconazole 2 % shampoo 1 applic topical 3XW Qty: 120 0RF ketoconazole 2 % cream 1 applic topical BID Qty: 30 0RF famotidine [Pepcid] 20 mg tablet 20 mg PO DAILY Qty: 90 1RF hydroxyzine HCl 10 mg tablet 10 mg PO TID PRN (Reason: nausea and vomiting) Qty: 30 0RF diclofenac sodium 50 mg tablet,delayed release (DR/EC) 50 mg PO BID PRN (Reason: pain) Qty: 90 2RF hydrocodone-acetaminophen 5-325 mg tablet 1 tablet PO Q6H PRN (Reason: pain) Qty: 20 0RF ondansetron 4 mg tablet,disintegrating 4 mg PO Q8H PRN (Reason: nausea and vomiting) Qty: 20 0RF tamsulosin 0.4 mg capsule 0.4 mg PO QHS Qty: 14 0RF nortriptyline 10 mg Capsule 40 mg PO HS levetiracetam 1,000 mg tablet 2,000 mg PO BID <Marina Tellez PA-C - Last Filed: 02/15/25 18:55> Follow-up/Referrals: Duke Davis MD [Primary Care Provider, [facility]] <Marina Tellez PA-C - Last Filed: 02/15/25 18:55> Time of Disposition: 18:44 <Marina Tellez PA-C - Last Filed: 02/15/25 18:55> 18:44 <Anuj Ramos MD - Last Filed: 02/15/25 18:44>
--- OUTSIDE RECORDS SUMMARY | 2025-02-15 16:23 | XMS_ITS | Clinical Summary ---
Author Organization [facility] Address [address] [place] [address] Care Team Providers Care Yarn Inspector Name Role Phone None, Provider MD Primary Care Provider Unavaila ble Allergies Active Allergy Reactions Criticality Noted Date Comments Diphenhydramine Dizziness,Fatigue Low 11/16/2018 Fremanezumab Hives Medium 2022 Ibuprofen Other (see comment) Low 11/25/2024 Neurologist recommends she does not take due to epilepsy. Ondansetron Headache High 03/09/2024 Topiramate Other (see comment),Seizure High 05/09/2022 Increased sz activity increased seizures Medications diclofenac EC (VOLTAREN) 50 MG tablet Take 1 tablet (50 mg total) by mouth 2 (two) times daily as needed. Active divalproex ER (DEPAKOTE ER) 500 MG 24 hr tabletIndications: Seizure (CMS/HCC HHS/HCC) Take 2 tablets (1,000 mg total) by mouth every evening. 180 tablet 3 5 05/26/19 26 Active lamoTRIgine (LAMICTAL) 25 MG tabletIndications: Seizure (CMS/HCC HHS/HCC) Take 2 tablets (50 mg total) by mouth daily. 180 tablet 3 5 05/26/19 26 Active levETIRAcetam (KEPPRA) 1000 MG tabletIndications: Seizure (CMS/HCC HHS/HCC) Take 2 tablets (2,000 mg total) by mouth 2 (two) times daily. 360 tablet 3 5 05/26/19 26 Active rimegepant (NURTEC) 75 MG disintegrating tabletIndications: Migraine without aura, not intractable, without status migrainosus Take 1 tablet (75 mg total) by mouth daily as needed for Migraine. Max of 1 tablet (75 mg) in 24 hours. 30 tablet 5 5 Active atogepant (QULIPTA) tabletIndications: Migraine without aura, not intractable, without status migrainosus Take 1 tablet (60 mg total) by mouth daily. 30 tablet 11 5 11/26/19 26 Active nortriptyline (PAMELOR) 50 MG capsuleIndications :Migraine without aura, not intractable, without status migrainosus Take 1 capsule (50 mg total) by mouth nightly at bedtime. 90 capsule 3 5 11/26/19 26 Active cloBAZam 20 MG TabIndications:Sei zure ([facility] H[facility]) Take 20 mg by mouth 2 (two) times a day. 180 tablet 3 5 12/15/19 26 Active clonazePAM (KLONOPIN) 1 MG tabletIndications: Seizure ([facility]) Take 1 tablet (1 mg total) by mouth 2 (two) times a day. 40 tablet 5 Active ubrogepant (UBRELVY) 100 MG tabletIndications: Migraine without aura, not intractable, without status migrainosus Take 1 tablet (100 mg total) by mouth 2 (two) times daily as needed. Max of 2 tablets (200 mg) in 24 hours 10 tablet 5 5 Active ubrogepant (UBRELVY) 100 MG tabletIndications: Migraine without aura, not intractable, without status migrainosus Take 1 tablet (100 mg total) by mouth 2 (two) times daily as needed. 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 Headache 12/04/2020 Seizure 12/04/2020 Generalized anxiety disorder 11/16/2018 Non-seasonal allergic rhinitis 09/03/2016 Vestibular migraine 02/20/2016 Overview (05/27/2024): Migraine Migraine with aura 06/16/2015 Generalized tonic clonic epilepsy 07/09/2011 Encounters Date Type Department Care Team Description 02/15/[address], [address] [place] [id number] Lynne Peace MD Question 12/17/2024 Misc Documentation [facility] [address], [address] [place] [address] Lynne Peace MD 12/17/2024 Orders Only [facility] [address], [address] [place] [address] Lynne Peace MD 11/25/2024 10:40 AM CDT Office Visit [facility] [address], [address] [place] [address] Lynne Peace MD Follow Up; Migraine (Migraines happening every day.) 11/25/2024 Travel from Last 3 Months Immunizations Immunization Administration Dates Next Due Influenza (Generic) 01/26/2021,01/28/2013 Influenza Adult (Generic) 01/04/2022,,11/27/2016,2015,12/09/2014,12/22/2013 PFIZER COVID-19 (ORIGINAL FORMULATION, PURPLE CAP) mRNA, LNP-S, PF, 30 MCG/0.3 ML DOSE 06/13/2020,05/23/2020 Family History Medical History Relation Comments None Mother Adopted mother Relation Status Comments Mother Alive Social History Tobacco Use Types Packs/Day Years Used Date Smoking Tobacco: Never Passive Smoke Exposure: Never Smokeless Tobacco: Never Tobacco Cessation:Counseling Given: Yes Alcohol Use Standard Drinks/Week Comments Never 0 (1 standard drink = 0.6 oz pur e alcohol) PHQ-2 Answer Date Recorded Patient Health Questionnaire-2 Score 0 05/25/2024 Comments Unknown Sex and Gender Information Value Date Recorded Sex Assigned at Not on file Legal Sex Female 9:20 AM CDT Gender Identity Not on file Sexual Orientation Not on file Last Filed Vital Signs Vital Sign Reading Time Taken Comments Blood Pressure 114/71 11/25/2024 10:29 AM CDT Pulse 101 11/25/2024 10:29 AM CDT Temperature - - Respiratory Rate 12 11/25/2024 10:29 AM CDT Oxygen Saturation 99% 11/25/2024 10:29 AM CDT Inhaled Oxygen Concentration - - Weight 65.8 kg (145 lb) 11/25/2024 10:29 AM CDT Height 160 cm (5' 3) 11/25/2024 10:29 AM CDT Body Mass Index 25.69 11/25/2024 10:29 AM CDT Plan of Treatment Upcoming Encounters Date Type Department Care Team (Late st Contact Info) Description 02/25/2025 10:40 AM [employer] MANAGER Office Visit [facility] - [address], [address] [place] [id number] Lynne Peace MD [address] [place] [address] Health Maintenance Due Date Last Done Comments Cervical Cancer Screening Pap Smear (Age 30 to 64) Every 3 Years 1991 Annual Physical 09/01/1994 Hepatitis C 09/01/2009 DTaP, Tdap and Td Vaccines (1 - Tdap) 09/01/2010 Hepatitis B Vaccines (1 of 3 - 19+ 3-dose series) 09/01/2010 HPV Vaccines (1 - 3-dose SCDM series) 09/01/2018 Cervical Cancer Screening Pap with HPV Testing (Age 30 to 64) Every 5 Years 09/01/2021 Cervical Cancer Screening with HPV 09/01/2021 COVID-19 Vaccine ( season) 2024 06/13/2020, 05/23/2020 Influenza Adult (#1) 2024 01/04/2022, 01/26/2021, 03/12/2018, Additional history exists PHQ-2 (Physician [place]) Completed 05/25/2024 Hepatitis A Vaccines Aged Out No long er eligible based on patient's age to complete this topic Meningococcal B Vaccine Aged Out No l onger eligible based on patient's age to complete this topic Meningococcal Vaccine Aged Out No jackson alejandro eligible based on patient's age to complete this topic Pneumococcal Vaccine: Pediatrics (0 to 5 Years) and At-Risk Patients (6 to 49 Years) Aged Out No longer eligible based on patient's age to complete this topic RSV Immunizations Under 20 Months Aged Out No longer eligible based on patient's age to complete this topic Insurance [employer] Care Teams Yarn Inspector Relationship Specialty Start Date End Date None, Provider, MD PCP - General UNKNOWN PHYSICIAN SPECIALTY 05/25/24
--- OUTSIDE RECORDS SUMMARY | 2025-02-15 16:23 | XMS_ITS | Clinical Summary ---
Author Organization [facility] Address [address] [place] [phone] Phone Care Team Providers Care Nurse Anesthetist Name Role Phone Duke Davis MD Primary Care Provider Allergies Active Allergy Reactions Criticality Noted Date Comments Fremanezumab-Vfrm Hives Medium 2022 Diphenhydramine Dizziness Low 11/16/2018 Ibuprofen Other (See comments) Low Neurologist recommends she does not take due to epilepsy. Topiramate Other (See comments) Low 05/09/2022 Increased sz activity Medications ubrogepant (Ubrelvy) 100 mg tabletIndications: Vestibular migraine Take 1 tablet (100 mg total) by mouth once as needed for migraine May repeat dose once in 2 hours if no relief. Do not exceed 2 doses in 24 hours. 16 tablet 11 04/19/19 23 Active Additional Information Patient not taking.Reported on 09/11/2023 celecoxib (CeleBREX) 200 mg capsule Take 1 capsule (200 mg total) by mouth daily as needed for pain 30 capsule 1 05/13/19 23 Active Additional Information Patient not taking.Reported on 09/11/2023 erenumab-aooe (Aimovig Autoinjector) 70 mg/mL auto-injector subcutaneous injection Inject 1 mL (70 mg total) under the skin every 30 (thirty) days 1 mL 09/03/19 Active Additional Information Patient not taking.Reported on 09/11/2023 diclofenac potassium 50 mg powder in packetIndications: Migraine with aura and without status migrainosus, not intractable Dissolve packet in 2-4 tbsp of water and take PO at onset of migraine. May repeat once after 4 hrs if needed. 27 packet 3 12/24/19 Active Additional Information Patient not taking.Reported on 09/11/2023 clonazePAM (KlonoPIN) 0.5 mg disintegrating tablet DISSOLVE 1 TABLET (0.5 MG TOTAL) BY MOUTH UP TO TWICE A DAY NEEDED FOR SEIZURES 10 tablet 02/28/20 Active lamoTRIgine (LaMICtal) 25 mg tablet Take 2 tablets (50 mg total) by mouth nightly 180 tablet 3 09/11/19 24 Active levETIRAcetam (KEPPRA) 1,000 mg tablet Take 2 tablets (2,000 mg total) by mouth 2 (two) times a day 360 tablet 3 09/11/19 24 Active nortriptyline (PAMELOR) 10 mg capsuleIndications :Vestibular migraine TAKE 4 CAPSULES BY MOUTH EVERY DAY AT BEDTIME 360 capsule 3 09/11/[address] (VOLTAREN) 50 mg EC tabletIndications: Vestibular migraine 1 tab po bid prn headache. Take with food. 30 tablet 5 09/11/19 24 Active cloBAZam (ONFI) 20 mg tabletIndications: [place]-Gastaut Syndrome Treatment Adjunct Take 1 tablet (20 mg total) by mouth 2 (two) times a day 60 tablet 5 12/18/19 24 Active divalproex ER (DEPAKOTE ER) 500 mg 24 hr tablet Take 2 tablets (1,000 mg total) by mouth nightly 180 tablet 1 12/24/19 24 Active ondansetron ODT (ZOFRAN-ODT) 4 mg disintegrating tablet Take 1 tablet (4 mg total) by mouth every 8 (eight) hours as needed for nausea or vomiting 20 tablet 02/02/20 24 Active famotidine (PEPCID) 20 mg tablet Take 1 tablet (20 mg total) by mouth 2 (two) times a day for 15 days 30 tablet 02/02/20 24 Active Active Problems Problem Noted Date Diagnosed Date Urolithiasis 12/07/2020 Urinary retention 12/05/2020 Seizure 12/04/2020 Headache 12/04/2020 Generalized anxiety disorder 11/16/2018 Non-seasonal allergic rhinitis 09/03/2016 Vestibular migraine 02/20/2016 Overview (07/04/2016): Migraine Migraine with aura 06/16/2015 Generalized tonic clonic epilepsy 07/09/2011 Immunizations Immunization Administration Dates Next Due Influenza, Quadrivalent, Spl it, Preservative Free, Intramuscular 03/12/2018,11/27/2016,01/02/2016,12/09,12/22/2013 Influenza, Trivalent, Split, Preservative Free, Intradermal 01/28/2013 Surgical History Surgery Date Site/Laterality Comments ADENOIDECTOMY MYRINGOTOMY W/ TUBES Medical History Medical History Date Comments Seizure disorder (HCC) Seizure d isorder Migraine Epilepsy (HCC) Kidney stone while on Zonisam dianna Family History * Patient is adopted Medical History Relation Name Comments No Known Problems Father No Known Problems Maternal Grandfather No Known Problems Maternal Grandmother No Known Problems Mother No Known Problems Paternal Grandfather No Known Problems Paternal Grandmother Relation Name Status Comments Father Maternal Grandfather Maternal Grandmother Mother Paternal Grandfather Paternal Grandmother Social History Tobacco Use Types Packs/Day Years Used Date Smoking Tobacco: Never Smokeless Tobacco: Never Tobacco Cessation:Counseling Given: Not Answered Alcohol Use Standard Drinks/Week Comments No 0 (1 standard drink = 0.6 oz pur e alcohol) PHQ-2 Answer Date Recorded PHQ-2 Score 0 11/13/2018 Hunger Vital Sign Answer Date Recorded Within the past 12 months, y ou worried that your food would run out before you got the money to buy more. Never true 09/11/19 24 Within the past 12 months, t he food you bought just didn't last and you didn't have money to get more. Never true 09/11/2023 Personal Safety Answer Date Recorded Have you ever been in or are you currently in a harmful physical or emotional relationship or is someone making you feel afraid or unsafe? 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 Not on file Not on file Not on file Last Filed Vital Signs Vital Sign Reading Time Taken Comments Blood Pressure 135/87 02/02/2024 1:50 AM ANIMAL ATT[employer]ANTS [employer] Pulse 104 02/02/2024 1:50 AM ANIMAL ATT[employer]ANTS [employer] TRA[employer] Temperature 36.4 C (97.6 F) 02/01/2024 11:20 PM ANIMAL ATT[employer]ANTS [employer] TRA[employer] Respiratory Rate 18 02/02/2024 1:50 AM ANIMAL ATTENDANTS AND TRA[employer]ERS Oxygen Saturation 99% 02/02/2024 1:50 AM ANIMAL ATTENDANTS AND TRA[employer]ERS Inhaled Oxygen Concentration - - Weight 67.6 kg (149 lb) 02/01/2024 11:20 PM [employer] ATT[employer] Height 157.5 cm (5' 2) 09/11/2023 1:11 PM CDT Body Mass Index 27.25 09/11/2023 1:11 PM CDT Plan of Treatment Health Maintenance Due Date Last Done Comments Cervical Cancer Screening 1991 Hepatitis C Screening 1991 DTaP/Tdap/Td Vaccine (7 - Td or Tdap) 12/29/2016 12/29/2006, 10/11/1995, 12/15/1992, Additional history exists HPV Vaccines (1 - 3-dose SCDM series) 09/01/2018 Depression Screening 03/12/2019 03/12/2018, 09/04/19 17 Regular Well Visit/Exam 18-64 03/12/2019 03/12/2018, 11/26/2016 Covid-19 Vaccine ( season) 2024 06/13/2020, 05/23/2020 Influenza Vaccine (#1) 2024 2, 03/12/2018, 11/27/2016, Additional history exists Hepatitis B Screening Completed 12/15/1992 , 01/03/1992, 1991 Varicella Vaccines Completed 10/03/2009, 10/25/1997 Pneumococcal vaccine <65 Aged Out No longer eligible based on patient's age to complete this topic [place] [facility] [place] Advance Directives For more information, please contact: [phone] * Full Code (Latest Code Status on File) Date Activated Date Inactivated Comments 12/04/2020 11:08 AM 12/08/2020 6:23 PM Care Teams Nurse Anesthetist Relationship Specialty Start Date End Date Duke Davis MD PCP - General Family Medicine 01/09/21
--- OUTSIDE RECORDS SUMMARY | 2025-02-15 16:23 | XMS_ITS | Encounter Summary ---
Author Organization [facility] Address [facility] [place] [address] Care Team Providers Care Online Project Manager Name Role Phone None, Provider Primary Care Provider Unavaila ble Encounter Details Date Type Department Care Team (Late st Contact Info) Description 06/09/2024 MyChart Message Enc [facility] - [address], [address] [place] [phone] Lynne Peace MD [address] [place] [address] [phone] Prescription for Clobazam Social History Tobacco Use Types Packs/Day Years Used Date Smoking Tobacco: Never Passive Smoke Exposure: Never Smokeless Tobacco: Never Alcohol Use Standard Drinks/Week Comments Never 0 (1 standard drink = 0.6 oz pur e alcohol) PHQ-2 Answer Date Recorded Patient Health Questionnaire-2 Score 0 05/25/2024 Comments Unknown Sex and Gender Information Value Date Recorded Sex Assigned at Not on file Legal Sex Female 9:20 AM CDT Gender Identity Not on file Sexual Orientation Not on file documented as of this encounter Plan of Treatment Upcoming Encounters Date Type Department Care Team (Late Contact Info) Description 02/25/2025 10:40 AM YARN WRAPPER Office Visit [facility] - [address], [address] [place] [phone] Lynne Peace MD [address] [place] [address] documented as of this encounter Visit Diagnoses Not on filedocumented in this encounter Care Teams Online Project Manager Relationship Specialty Start Date End Date None, Provider, PCP - General UNKNOWN PHYSICIAN SPECIALTY 05/25/24 documented as of this encounter
--- OUTSIDE RECORDS SUMMARY | 2025-02-15 16:23 | XMS_ITS | Encounter Summary ---
Author Organization [facility] Address [facility] [place] [address] Care Team Providers Care General Lot Attendant Name Role Phone None, Provider MD Primary Care Provider Unavaila ble Reason for Visit * Reason Onset Date Comments Question 02/15/2025 Encounter Details Date Type Department Care Team (Late st Contact Info) Description 02/15/2025 Telephone [facility] Medical [facility] Multispecialty Care - [facility] [address] [facility], [address] [place] [phone] Lynne Peace MD [address] [place] [address] Question Social History Tobacco Use Types Packs/Day Years [...] on file documented as of this encounter Progress Notes * Brea Dean - 02/15/2025 1:46 PM CSTSummary: Sudafed D Pt took a Sudafed D today for the first time and is experiencing shaking - like vibrating Call transferred to [place] to further assist. Thank you PRODUCT PURCHASER documented in this encounter Plan of Treatment Upcoming Encounters Date Type Department Care Team (Late st Contact Info) Description 02/25/2025 10:40 AM FARM PRODUCT PURCHASER Office Visit [facility] Medical Group Multispecialty Care - [facility] [address] [facility], [address] [place] [phone] Lynne Peace MD [address] [place] [address] documented as of this encounter Visit Diagnoses Not on filedocumented in this encounter Care Teams General Lot Attendant Relationship Specialty Start Date End Date None, Provider, PCP - General UNKNOWN PHYSICIAN SPECIALTY 05/25/24 documented as of this encounter
--- NOTE | 2025-02-15 16:40 | PC.NURSE ---
RN attempted to get a urine sample. Patient states she needs to be straight cathed to get a sample, she cannot pee on demand.
[2025-02-15 16:43] LABS: Hematocrit 41.7 % (37.0-47.0); Hemoglobin 14.5 g/dL (12.0-15.0); Immature Granulocyte Percent A 1.1 % (0-0.5); Lymphocytes Absolute Auto 1.56 K/mm3 (0.9-3.2); Mean Corpuscular HGB Conc 34.8 g/dl (32-36); Mean Corpuscular Hemoglobin 33.7 pg (26-34); Mean Corpuscular Volume 97.0 fl (80-100); Nucleated Red Blood Cells Absolute Auto 0.000 K/mm3 (0.0-0.012); Nucleated Red Blood Cells Perc 0.0 % (0.0-0.2); Platelet Count Result 331 k/mm3 (150-375); Red Blood Count 4.30 M/mm3 (4.2-5.4); White Blood Count 8.1 K/mm3 (4.5-10.0)
[2025-02-15] MEDS: SODIUM CHLORIDE 0.9% IV 1,000 ML 999 ML IV CONT (16:49)
[2025-02-15 16:55] LABS: Alanine Aminotransferase 16 U/L (6-35); Albumin Level 4.6 g/dL (3.5-5.1); Alkaline Phosphatase 69 U/L (38-126); Anion Gap 7 mmol/L (4-12); Aspartate Amino Transferase 30 U/L (14-36); Bilirubin,Total 0.3 mg/dL (0.2-1.3); Blood Urea Nitrogen 10 mg/dL (7-17); Calcium 9.5 mg/dL (8.4-10.2); Carbon Dioxide 27 mmol/L (22-30); Chloride 101 mmol/L (98-107); Creatine Kinase 43 U/L (30-135); Estimated CRCL calculation 110 ml/min; Estimated Glomerular Filt Rate > 60; Glucose 105 mg/dL (65-110); Potassium 4.8 mmol/L (3.4-5.0); Sodium 135 mmol/L (137-145); Total Protein 7.8 g/dL (6.3-8.2)
[2025-02-15 17:20] LABS: Influenza A QL RT-PCR Negative (Negative); Influenza B QL RT-PCR Negative (Negative); RSV RNA, RT-PCR Negative (Negative); SARS-CoV-2 RNA PCR Negative (Negative)
--- OUTSIDE RECORDS SUMMARY | 2025-02-15 17:50 | XMS_ITS | Clinical Summary ---
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 Adjunct Take 1 tablet (20 [...] on file Legal Sex Female 4:16 AM MANAGER DISASTER RECOVERY Gender Identity Female 01/16/2020 3:07 PM CDT Sexual Orientation Choose not to disclose 2020 11:06 AM MANAGER DISASTER RECOVERY 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 Not on file Not on file Not on file Last Filed Vital Signs Vital Sign Reading Time Taken Comments Blood Pressure 135/87 02/02/2024 1:50 AM MANAGER DISASTER RECOVERY Pulse 104 02/02/2024 1:50 AM MANAGER DISASTER RECOVERY Temperature 36.4 C (97.6 F) 02/01/2024 11:20 PM MANAGER DISASTER RECOVERY Respiratory Rate 18 02/02/2024 1:50 AM MANAGER DISASTER RECOVERY Oxygen Saturation 99% 02/02/2024 1:50 AM MANAGER DISASTER RECOVERY Inhaled Oxygen Concentration - - Weight 67.6 kg (149 lb) 02/01/2024 11:20 PM MANAGER DISASTER RECOVERY Height 157.5 cm (5' 2) 09/11/2023 1:11 [...] this topic [place] [facility] [place]ESS [place] Advance Directives For more information, please contact: [phone] * Full Code (Latest Code Status on File) Date Activated Date Inactivated Comments 12/04/2020 11:08 AM 12/08/2020 6:23 PM Care Teams Manager Lighting Relationship Specialty Start Date End Date Duke Davis MD PCP - General Family Medicine 01/09/21
--- OUTSIDE RECORDS SUMMARY | 2025-02-15 17:50 | XMS_ITS | Encounter Summary ---
Author Organization [facility] Address [facility] [place] [address] Care Team Providers Care Vba Programmer Name Role Phone None, Provider MD Primary Care Provider Unavaila ble Reason for Visit * Reason Onset Date Comments Question 02/15/2025 Encounter Details Date Type Department Care Team (Late st Contact Info) Description 02/15/2025 Telephone [facility] Medical [facility] Multispecialty Care - [facility] [address] [facility], [address] [place] [phone] Lynne Peace MD [address] [place] [address] Question Social History Tobacco Use Types Packs/Day [...] shaking - like vibrating Call transferred to [place] to further assist. Thank you GER PSYCHIATRY documented in this encounter Plan of Treatment Upcoming Encounters Date Type Department Care Team (Late st Contact Info) Description 02/25/2025 10:40 AM MANAGER PSYCHIATRY Office Visit [facility] Medical Group Multispecialty Care - [facility] [address] [facility], [address] [place] [phone] Lynne Peace MD [address] [place] [address] documented as of this encounter Visit Diagnoses Not on filedocumented in this encounter Care Teams Vba Programmer Relationship Specialty Start Date End Date None, Provider, PCP - General UNKNOWN PHYSICIAN SPECIALTY 05/25/24 documented as of this encounter
--- OUTSIDE RECORDS SUMMARY | 2025-02-15 17:50 | XMS_ITS | Encounter Summary ---
Author Organization [facility] Address [facility] [place] [address] Care Team Providers Care Meter Tester Primary Name Role Phone None, Provider Primary Care Provider Unavaila ble Encounter Details Date Type Department Care Team (Late st Contact Info) Description 06/09/2024 MyChart Message Enc [facility] - [address], [address] [place] [phone] Lynne Peace MD [address] [place] [phone] Prescription for Clobazam Social History Tobacco Use [...] (Late Contact Info) Description 02/25/2025 10:40 AM TOOL DRAWING CHECKER Office Visit [facility] - [address], [address] [place] [phone] Lynne Peace MD [address] [place] [address] documented as of this encounter Visit Diagnoses Not on filedocumented in this encounter Care Teams Meter Tester Primary Relationship Specialty Start Date End Date None, Provider, PCP - General UNKNOWN PHYSICIAN SPECIALTY 05/25/24 documented as of this encounter
--- OUTSIDE RECORDS SUMMARY | 2025-02-15 17:50 | XMS_ITS | Clinical Summary ---
Author Organization [facility] Address [address] [place] [address] Care Team Providers Care Stock House Worker Name Role Phone None, Provider MD Primary [...] 26 Active cloBAZam 20 MG TabIndications:Sei zure ([facility]) Take 20 mg by mouth 2 (two) times a day. 180 tablet 3 5 12/15/19 26 Active clonazePAM (KLONOPIN) 1 MG tabletIndications: Seizure ([facility]) Take 1 tablet (1 mg total) by [...] Type Department Care Team Description 02/15/[address], [address] [place] [phone] Lynne Peace MD Question 12/17/2024 Misc Documentation [facility] [address] [facility], [address] [place] [address] Lynne ePace MD 12/17/2024 Orders Only [facility] [address] [facility], [address] [place] [address] Lynne Peace MD 11/25/2024 10:40 AM CDT Office Visit [facility] [address], [address] [place] [address] Lynne Peace MD Follow Up; Migraine [...] st Contact Info) Description 02/25/2025 10:40 AM HEDGE TRIMMER Office Visit [facility] Medical Group Multispecialty Care - [address], [address] [place] [phone] Lynne Peace MD [address] [place] [address] Health Maintenance Due Date Last Done Comments [...] 01/26/2021, 03/12/2018, Additional history exists PHQ-2 (Physician [place]) Completed 05/25/2024 Hepatitis A Vaccines Aged Out [...] complete this topic Insurance [employer]TER Care Teams Stock House Worker Relationship Specialty Start Date End Date None, Provider, MD PCP - General UNKNOWN PHYSICIAN SPECIALTY 05/25/24
[2025-02-15 18:11] LABS: BEDSIDEPREGUCG Negative (Negative)
[2025-02-15 18:22] LABS: Add Urine Microscopic? YES; Appearance Urine Clear (Clear); Glucose Urine UA Negative (Negative); Leukocyte Esterase Ur Trace LEU/UL (Negative); Nitrate Urine Negative (Negative); Non Pathogenic Casts 0-2; Specific Grav Ur 1.007 (1.001-1.035)
== END 2025-02-15 19:30 | disposition home or self-care (01) ==
PROVIDERS: Emergency Medicine; Physician Assistant; Emergency Provider Emergency Medicine; PCP Family Medicine
DX: J06.9 Acute upper respiratory infection, unspecified (principal); R00.2 Palpitations; Z20.822 Contact with and (suspected) exposure to COVID-19; R00.0 Tachycardia, unspecified; F41.9 Anxiety disorder, unspecified; Z87.442 Personal history of urinary calculi; G40.909 Epilepsy, unspecified, not intractable, without status epilepticus; Z87.440 Personal history of urinary (tract) infections
CPT/HCPCS: 36415; 80053; 81001; 81025; 82550; 85025; 87637; 93005; 96360; 99283; J7030